=== PATIENT | male | born 1940 | race Caucasian/White ===

== ENCOUNTER 2019-04-25 07:04 | Outpatient (CLI) | payer OTHER ==
[~2019-04-25] VITALS: Ht 172.7 cm; Wt 82.6 kg
[2019-04-25] MEDS ORDERED: albuterol 2.5 MG/3 ML nebule NEB PRN (07:50)
== END 2019-04-25 23:59 | disposition home or self-care (01) ==
LOC: RT 07:04
PROVIDERS: ATTEND Orthopaedic Surgery
DX: J92.9 Pleural plaque without asbestos (principal); J44.9 Chronic obstructive pulmonary disease, unspecified; Z79.899 Other long term (current) drug therapy; Z87.891 Personal history of nicotine dependence
CPT/HCPCS: 71046; 94060; 94729; 94760

== ENCOUNTER 2019-08-07 15:02 | Outpatient (CLI) | payer OTHER ==
[~2019-08-07] VITALS: Ht 172.7 cm; Wt 83.5 kg
[2019-08-07] MEDS ORDERED: albuterol 2.5 MG/3 ML nebule NEB PRN (15:35)
== END 2019-08-07 23:59 | disposition home or self-care (01) ==
LOC: RT 15:02
PROVIDERS: ATTEND Orthopaedic Surgery
DX: J92.9 Pleural plaque without asbestos (principal); J44.9 Chronic obstructive pulmonary disease, unspecified; Z87.891 Personal history of nicotine dependence; Z79.899 Other long term (current) drug therapy
CPT/HCPCS: 71046; 94060; 94729; 94760